=== PATIENT | male | born 1960 | race Asian ===

== ENCOUNTER 2024-09-13 09:43 | Emergency (ER) | payer OTHER ==
[~2024-09-13] VITALS: Ht 170.2 cm; Wt 65.8 kg
[2024-09-13] MEDS ORDERED: ADENOSINE 6 MG/2 ML VIAL ONE (09:58)
[2024-09-13] MEDS: IV NS 0.9% 1,000 ML BAG IV ONE (10:08)
[2024-09-13] MEDS: ADENOSINE 6 MG/2 ML VIAL IVP ONE ×2 (10:09)
[2024-09-13 10:27] VITALS: BP 113/69; TEMP 98.3; O2SAT 100
== END 2024-09-13 10:28 | disposition home or self-care (01) ==
LOC: ER 09:48
DX: I47.10 Supraventricular tachycardia, unspecified (principal); Z86.79 Personal history of other diseases of the circulatory system; R00.2 Palpitations; Z60.2 Problems related to living alone
CPT/HCPCS: 99291; 96360; 99152; 93005 ×3; J0153; J7030; G0500

== ENCOUNTER 2025-04-03 02:52 | Emergency (ER) | payer OTHER ==
[~2025-04-03] VITALS: Ht 167.6 cm; Wt 65.8 kg
[2025-04-03 02:58] VITALS: BP 130/19; TEMP 98.4; O2SAT 98
[2025-04-03] MEDS ORDERED: ADENOSINE 6 MG/2 ML VIAL ONE (03:01)
[2025-04-03] MEDS: ADENOSINE 6 MG/2 ML VIAL IVP ONE (03:07)
== END 2025-04-03 03:24 | disposition home or self-care (01) ==
LOC: ER 02:55
DX: I47.10 Supraventricular tachycardia, unspecified (principal); R00.2 Palpitations; F32.A Depression, unspecified; Z79.899 Other long term (current) drug therapy; Z60.2 Problems related to living alone
CPT/HCPCS: 99283; 96374; 93005; J0153; J7040

== ENCOUNTER 2025-04-16 10:46 | Emergency (ER) | payer OTHER ==
[~2025-04-16] VITALS: Ht 170.2 cm; Wt 65.8 kg
[2025-04-16 10:54] VITALS: TEMP 97.9
[2025-04-16] MEDS: ADENOSINE 6 MG/2 ML VIAL IVP ONE (11:00)
[2025-04-16] MEDS ORDERED: ADENOSINE 6 MG/2 ML VIAL ONE (11:00)
[2025-04-16 11:47] VITALS: BP 125/76; O2SAT 98
== END 2025-04-16 11:45 | disposition home or self-care (01) ==
LOC: ER 10:46
DX: I47.10 Supraventricular tachycardia, unspecified (principal); R07.9 Chest pain, unspecified; Z86.79 Personal history of other diseases of the circulatory system
CPT/HCPCS: 99283; 96374; 93005; J0153; J7040

== ENCOUNTER 2025-04-16 19:10 | Emergency (ER) | payer OTHER ==
[~2025-04-16] VITALS: Ht 170.2 cm; Wt 65.8 kg
[2025-04-16] MEDS ORDERED: ADENOSINE 6 MG/2 ML VIAL ONE (19:26)
[2025-04-16] MEDS: ADENOSINE 6 MG/2 ML VIAL IVP ONE (20:14)
[2025-04-16 20:19] VITALS: BP 109/77; TEMP 98; O2SAT 99
== END 2025-04-16 20:20 | disposition home or self-care (01) ==
LOC: ER 19:13
DX: I47.10 Supraventricular tachycardia, unspecified (principal); R00.2 Palpitations
CPT/HCPCS: 99285; 99152; 93005; J0153; J7040; G0500; J7030